=== PATIENT | female | born 1970 | race Caucasian/White ===

== ENCOUNTER 2018-11-24 13:30 | Observation (INO) | payer BC, OTHER ==
[2018-11-24] MEDS ORDERED: Ondansetron 4 MG/2 ML SDV IVPUSH ONE ×2 (13:48→16:30)
[2018-11-24] MEDS ORDERED: Sodium Chloride 0.9% 10 ML Syringe FLUSH PRN (13:48)
[2018-11-24] MEDS ORDERED: HYDROmorphone 1 MG/ML Syringe IVPUSH ONE ×2 (13:48→16:30)
[2018-11-24] MEDS ORDERED: Sodium Chloride 0.9% 1,000 ML IV ONE (13:48)
[2018-11-24] MEDS ORDERED: Sodium Chloride 0.9% 2.5 ML Syringe FLUSH PRN (13:48)
--- NOTE | 2018-11-24 13:51 | EDM.PDOC ---
ED HPI GENERAL MEDICAL PROBLEM - General Stated Complaint: SICK Time Seen by Provider: 11/24/18 13:40 - History of Present Illness INITIAL COMMENTS - FREE TEXT/NARRATIVE: HISTORY AND PHYSICAL: History of present illness: Patient's 48-year-old white female was admitted multiple prior abdominal surgeries including hysterectomy and cholecystectomy who presents with concern of nausea vomiting and abdominal pain 1 day she's had similar episodes in the past with internal hernia and associated bowel obstruction. Review of systems: As per history of present illness and below otherwise all systems reviewed and negative. Past medical history: As per history of present illness and as reviewed below otherwise noncontributory. Surgical history: As per history of present illness and as reviewed below otherwise noncontributory. Social history: No reported history of drug or alcohol abuse. Family history: As per history of present illness and as reviewed below otherwise noncontributory. Physical exam: HEENT: Atraumatic, normocephalic, pupils reactive, negative for conjunctival pallor or scleral icterus, mucous membranes dry, throat clear, neck supple, nontender, trachea midline. Lungs: Clear to auscultation, breath sounds equal bilaterally, chest nontender. Heart: S1S2, regular, negative for clicks, rubs, or JVD. Abdomen: Soft, nondistended, mild nonlocalized tenderness no rebound no guarding. Negative for masses or hepatosplenomegaly. Negative for costovertebral tenderness. Pelvis: Stable nontender. Genitourinary: Deferred. Rectal: Deferred. Extremities: Atraumatic, negative for cords or calf pain. Neurovascular unremarkable. Neuro: Awake, alert, oriented. Cranial nerves II through XII unremarkable. Cerebellum unremarkable. Motor and sensory unremarkable throughout. Exam nonfocal. Diagnostics: CBC CMP troponin PT/INR lipase chest x-ray CT abdomen and pelvis UA Therapeutics: Dilaudid 1 mg IV saline 1 L bolus Zofran 4 mg IV Impression: #1 abdominal pain #2 vomiting Definitive disposition and diagnosis as appropriate pending reevaluation and review of above. Abdomen Pain Score (Numeric/FACES): 8 - Related Data Allergies Allergy/AdvReac Type Severity Reaction Status Date / Time butorphanol tartrate AdvReac Vomiting Verified 11/24/18 13:55 [From Stadol] Home Meds: Home Meds . [No Known Home Meds] 11/24/18 [History] Past Medical History HEENT History: Reports: Allergic Rhinitis Gastrointestinal History: Reports: None Genitourinary History: Reports: None [employer] ATT[employer]NEY History: Reports: Endometriosis Musculoskeletal History: Reports: Fracture - Past Surgical History HEENT Surgical History: Reports: Oral Surgery (Upper wisdom teeth extraction) GI Surgical History: Reports: Bariatric Procedure (Gastric bypass January 2005) , Cholecystectomy (2006), Other (See Below) (Exploratory laparoscopy x 3) Female Surgical History: Reports: Section (x 2), Hysterectomy (2006) , Other (See Below) (Urethral repair) Social & Family History - Family History Family Medical History: Noncontributory - Caffeine Use Caffeine Use: Reports: Coffee - Living Situation & Occupation Living situation: Reports: , with Spouse Occupation: Employed (Paraprofessional) ED ROS GENERAL - Review of Systems Review Of Systems: ROS reveals no pertinent complaints other than HPI. ED EXAM, GENERAL - Physical Exam Exam: See Below (See dictation) Course - Vital Signs Text/Narrative:: General surgery Dr. Garcia was consulted and saw patient in emergency department and requested admission for observation NG tube was ordered per Dr. Garcia in emergency department. Pressure remains abdominal pain CT scan and report was reviewed by general surgery Last Recorded V/S: Last Vital Signs Temp 36.0 C 11/24/18 16:31 Pulse 81 11/24/18 16:31 Resp 18 11/24/18 16:31 BP 126/80 11/24/18 16:31 Pulse Ox 97 11/24/18 16:31 - Orders/Labs/Meds Orders: Active Orders 24 hr Category Date Time Status EKG Documentation Completion [RC] STAT Care 11/24/18 13:48 Active UA RFX MICHAEL AND CULT IF INDIC [URIN] Stat Lab 11/24/18 13:48 Ordered Sodium Chloride 0.9% [Saline Flush] Med 11/24/18 13:48 Active 10 ml FLUSH ASDIRECTED PRN Sodium Chloride 0.9% [Saline Flush] Med 11/24/18 13:48 Active 2.5 ml FLUSH ASDIRECTED PRN Saline Lock Insert [OM.PC] Stat Oth 11/24/18 13:48 Ordered Medication Orders Sodium Chloride (Saline Flush) 10 ml FLUSH ASDIRECTED PRN PRN Reason: Keep Vein Open Last Admin: 11/24/18 14:05 Dose: 10 ml Sodium Chloride (Saline Flush) 2.5 ml FLUSH ASDIRECTED PRN PRN Reason: Keep Vein Open Last Admin: 11/24/18 14:05 Dose: 2.5 ml Labs: Laboratory Tests 11/24/18 11/24/18 11/24/18 Range/Units 14:03 14:03 14:03 WBC 11.02 H (4.0-11.0) K/uL RBC 5.02 (4.30-5.90) M/uL Hgb 12.3 (12.0-16.0) g/dL Hct 39.9 (36.0-46.0) % MCV 79.5 L (80.0-98.0) fL MCH 24.5 L (27.0-32.0) pg MCHC 30.8 L (31.0-37.0) g/dL RDW Std Deviation 48.8 (28.0-62.0) fl RDW Coeff of Kassidy 17 H (11.0-15.0) % Plt Count 381 (150-400) K/uL MPV 10.10 (7.40-12.00) fL Neut % (Auto) 93.0 H (48.0-80.0) % Lymph % (Auto) 3.5 L (16.0-40.0) % [place] % (Auto) 3.4 (0.0-15.0) % Eos % (Auto) 0.0 (0.0-7.0) % Baso % (Auto) 0.1 (0.0-1.5) % Neut # (Auto) 10.3 H (1.4-5.7) K/uL Lymph # (Auto) 0.4 L (0.6-2.4) K/uL [place] # (Auto) 0.4 (0.0-0.8) K/uL Eos # (Auto) 0.0 (0.0-0.7) K/uL Baso # (Auto) 0.0 (0.0-0.1) K/uL Nucleated RBC % 0.0 /100WBC Nucleated RBCs # 0 K/uL INR 1.03 Sodium 140 (136-145) mmol/L Potassium 3.8 (3.5-5.1) mmol/L Chloride 102 (98-107) mmol/L Carbon Dioxide 23.6 (21.0-32.0) mmol/L BUN 9 (7.0-18.0) mg/dL Creatinine 0.7 (0.6-1.0) mg/dL Est Cr Clr Drug Dosing TNP Estimated GFR (MDRD) > 60.0 ml/min Glucose 129 H (74-106) mg/dL Calcium 9.7 (8.5-10.1) mg/dL Total Bilirubin 0.4 (0.2-1.0) mg/dL AST 26 (15-37) IU/L ALT 22 (14-63) IU/L Alkaline Phosphatase 92 (46-116) U/L Troponin I < 0.050 (0.000-0.056) ng/mL Total Protein 8.7 H (6.4-8.2) g/dL Albumin 4.0 (3.4-5.0) g/dL Globulin 4.7 H (2.6-4.0) g/dL Albumin/Globulin Ratio 0.9 (0.9-1.6) Lipase 991 H (73-393) U/L Meds: Medications Generic Name Dose Route Start Last Admin Trade Name Freq PRN Reason Stop Dose Admin Sodium Chloride 10 ml 11/24/18 13:48 11/24/18 14:05 Saline Flush FLUSH 10 ml ASDIRECTED PRN Administration Keep Vein Open Sodium Chloride 2.5 ml 11/24/18 13:48 11/24/18 14:05 Saline Flush FLUSH 2.5 ml ASDIRECTED PRN Administration Keep Vein Open Discontinued Medications Generic Name Dose Route Start Last Admin Trade Name Freq PRN Reason Stop Dose Admin Benzocaine 2 each 11/24/18 17:08 Hurricaine One 20% MUCMEM 11/24/18 17:09 ONETIME ONE Hydromorphone HCl 1 mg 11/24/18 13:48 11/24/18 14:05 Dilaudid IVPUSH 11/24/18 13:49 1 mg ONETIME ONE Administration Hydromorphone HCl 1 mg 11/24/18 16:30 11/24/18 16:37 Dilaudid IVPUSH 11/24/18 16:31 1 mg ONETIME ONE Administration Sodium Chloride 1,000 mls @ 999 mls/hr 11/24/18 13:48 11/24/18 14:03 Normal Saline IV 11/24/18 14:48 999 mls/hr STAT ONE Administration Lorazepam 0.5 mg 11/24/18 17:08 Ativan IVPUSH 11/24/18 17:09 ONETIME ONE Ondansetron HCl 4 mg 11/24/18 13:48 11/24/18 14:05 Zofran IVPUSH 11/24/18 13:49 4 mg ONETIME ONE Administration Ondansetron HCl 4 mg 11/24/18 16:30 11/24/18 16:37 Zofran IVPUSH 11/24/18 16:31 4 mg ONETIME ONE Administration Departure - Departure Time of Disposition: 17:21 Disposition: Refer to Observation Condition: Good Clinical Impression: Abdominal pain - Discharge Information Referrals: PCP,None [Primary Care Provider] - - My Orders Last 24 Hours: My Active Orders 11/24/18 13:48 EKG Documentation Completion [RC] STAT UA RFX MICHAEL AND CULT IF INDIC [URIN] Stat Sodium Chloride 0.9% [Saline Flush] 10 ml FLUSH ASDIRECTED PRN Sodium Chloride 0.9% [Saline Flush] 2.5 ml FLUSH ASDIRECTED PRN Saline Lock Insert [OM.PC] Stat - Assessment/Plan Last 24 Hours: My Active Orders 11/24/18 13:48 EKG Documentation Completion [RC] STAT UA RFX MICHAEL AND CULT IF INDIC [URIN] Stat Sodium Chloride 0.9% [Saline Flush] 10 ml FLUSH ASDIRECTED PRN Sodium Chloride 0.9% [Saline Flush] 2.5 ml FLUSH ASDIRECTED PRN Saline Lock Insert [OM.PC] Stat
--- NOTE | 2018-11-24 14:34 | CR ---
Chest: Portable view of the chest was obtained. Comparison: No prior chest imaging. Heart size and mediastinum are normal. Lungs are clear with no acute parenchymal change. Bony structures are grossly intact. Surgical clips are noted within the upper right abdomen from prior cholecystectomy. Impression: Nothing acute is seen on portable chest x-ray. Diagnostic code #2 MTDD
[2018-11-24 15:22] LABS: BLOOD UREA NITROGEN,BUN 9 mg/dL (7.0-18.0); CARBON DIOXIDE,CO2 23.6 mmol/L (21.0-32.0); CHLORIDE,CL 102 mmol/L (98-107); GLUCOSE RANDOM 129 mg/dL (74-106); LIPASE 991 U/L (73-393); POTASSIUM,K 3.8 mmol/L (3.5-5.1); SODIUM,NA 140 mmol/L (136-145)
--- NOTE | 2018-11-24 16:07 | CT ---
CT abdomen and pelvis Technique: Multiple axial sections were obtained from above the dome of the diaphragm inferiorly through the pubic symphysis. Intravenous and oral contrast not utilized. Comparison: No prior abdominal imaging is available. Findings: Visualized lung bases show nothing acute. Fluid-filled and dilated stomach is noted. Previous gastric surgery is seen. There is also mildly dilated fluid-filled duodenum as well as several dilated and fluid-filled jejunal loops down to an area of surgical clips within the proximal jejunum. Slightly past the area of dilatation there is whirling of the adjacent mesenteric vessels which suggest possibility of volvulus of the central mesentery. More distal bowel show normal caliber. Appendix is not visualized with certainty. No free fluid or inflammatory change is seen. Liver shows no focal abnormality. Spleen appears within normal limits. Pancreas shows no discrete abnormality. CBD is mildly dilated at 1.1 cm which is most likely due to previous cholecystectomy. Aorta shows no aneurysm. No retroperitoneal adenopathy is seen. Bone window settings were reviewed which appear within normal limits for the patient's age. Impression: 1. Fluid-filled and dilated stomach as well as duodenum and proximal jejunum. This dilatation stops is an area of surgical anastomotic sutures within the jejunum. At this level there is whirling of the mesentery suggesting the possibility of a volvulus. 2. CBD mildly dilated most likely residual from prior cholecystectomy. 3. No additional abnormality is appreciated. Diagnostic code #5 MTDD
[2018-11-24] MEDS ORDERED: LORazepam 2 MG/ML SDV IVPUSH ONE (17:08)
[2018-11-24] MEDS ORDERED: Benzocaine 20% Topical Spray UD MUCMEM ONE (17:08)
[2018-11-24] MEDS ORDERED: Ondansetron 4 MG/2 ML SDV IVPUSH PRN (17:41)
[2018-11-24] MEDS: Morphine 2 MG/ML Syringe IVPUSH PRN (18:24)
[2018-11-24] MEDS: Lactated Ringers 1,000 ML IV SCH (18:25)
--- NOTE | 2018-11-24 18:27 | CR ---
INDICATION: NG tube placement. TECHNIQUE: Supine portable abdomen. 2 images 1743 and 1755 hours IMPRESSION : NG tube with its tip projected at the level of the stomach. The bowel gas pattern is nonobstructive. Two view submitted. Initial image NG tube is in the distal esophagus and it was then advanced to the level of the stomach. This was at 1755 hours. Surgical clips in the right upper quadrant. Dictated by Shantanu Harrell MD @ Nov 24 2018 6:24PM Signed by Dr. Shantanu Harrell @ Nov 24 2018 6:26PM
[2018-11-24] MEDS ORDERED: Promethazine 12.5 MG Supp RECTAL ONE (18:33)
--- NOTE | 2018-11-24 19:16 | CONS ---
DATE OF CONSULTATION: DATE OF : 1970 PRIMARY CARE PHYSICIAN: None PCP REASON FOR CONSULTATION: This is a consult from Dr. Boone in emergency room. Concerning question is abdominal pain. HISTORY OF PRESENT ILLNESS: The patient is a 48-year-old lady who has multiple abdominal surgeries, complained over several months on and off stomach problem. The patient remarked the situation got worse and pain increased to 10/10 yesterday and also nausea and vomiting. The patient sought help in the emergency room. Currently, the patient remarked that her pain is slightly better and is 7 on a pain scale and last bowel movement was a couple of hours prior to coming to the emergency room. ALLERGIES: Please refer to nursing for details. MEDICATION: Please refer to nursing for details. FAMILY HISTORY: Noncontributory. PAST MEDICAL HISTORY: Denied diabetes, NE, CVA, hypertension. PAST SURGICAL HISTORY: Gallbladder surgery, hysterectomy, and 2 explorations that resulted in bowel resection due to recurrent bowel obstruction. x2 in the past. SOCIAL HISTORY: Denied tobacco or alcohol abuse. REVIEW OF SYSTEMS: Same as history of present illness. PHYSICAL EXAMINATION: GENERAL: A very pleasant lady, smiled to the doctor, in no acute distress. HEENT: Normocephalic and atraumatic. Sclerae anicteric. LUNGS: Clear to auscultation. HEART: Regular rate and rhythm. ABDOMEN: Soft, nondistended. Mild subjective tenderness. No rebound tenderness. Diminished bowel sounds. There is no freight train gushing bowel sounds or high-pitched bowel sounds. VITAL SIGNS: Temperature 96.8, pulse rate is 81, pressure is 136/80, respiratory rate is 18, and on room air saturating at 97. LABORATORY DATA: White count is 11, H and H are 12 and 40, platelets are 380. INR is 1.02. Sodium was 140, potassium is 3.8, BUN is 9, creatinine is 0.7, glucose is 129. TBili is 0.4, AST and ALT of 26 and 22, alkaline phosphatase is 92. Troponin I is 0.05, negative. Albumin is 4. Lipase is 991. CAT scan reading: Fluid- filled and dilated stomach as well as duodenum and proximal jejunum. Dilatation stops in an area of surgical anastomotic sutures within the jejunum. There is swirling of the mesentery suggesting possibility of volvulus. IMPRESSION: CAT scan concern about recurrent internal hernia or internal volvulus and clinically the patient looks like as having a wax and wane situation, been going on for several months. We would put an NG tube, conservative management, decompression, and follow with serial abdominal exam or maybe imaging system. Plan has been discussed with the patient, proceed as planned, and at the same time try to obtain previous operational records from [facility]. Last surgery was done 11 years ago at [facility]. As always, thank you for the kind referral. PAUL LYN /[id number] FREDERIC
[2018-11-24] MEDS: Levofloxacin/Dextrose 5%-Water 750 MG in Premix Bag 1 BAG IV SCH (20:08)
[2018-11-25] MEDS: Lactated Ringers 1,000 ML IV SCH ×3 (02:30→16:30)
[2018-11-25 05:42] LABS: BLOOD UREA NITROGEN,BUN 12 mg/dL (7.0-18.0); CARBON DIOXIDE,CO2 27.3 mmol/L (21.0-32.0); CHLORIDE,CL 108 mmol/L (98-107); GLUCOSE RANDOM 99 mg/dL (74-106); LIPASE 375 U/L (73-393); POTASSIUM,K 3.4 mmol/L (3.5-5.1); SODIUM,NA 143 mmol/L (136-145)
[2018-11-25] MEDS: Pantoprazole 40 MG in Sodium Chloride 0.9% 10 ML IV SCH (08:15)
[2018-11-25] MEDS: Levofloxacin/Dextrose 5%-Water 750 MG in Premix Bag 1 BAG IV SCH (19:55)
[2018-11-25] MEDS: Morphine 2 MG/ML Syringe IVPUSH PRN (19:56)
[2018-11-26] MEDS: Lactated Ringers 1,000 ML IV SCH ×2 (00:02→06:45)
[2018-11-26 09:01] VITALS: BP 106/62; PULSE 65
[2018-11-26] MEDS: Pantoprazole 40 MG in Sodium Chloride 0.9% 10 ML IV SCH (10:02)
--- NOTE | 2018-11-26 10:29 | PCM.SURGPN ---
- General Info Date of Service: 11/25/18 Functional Status: Reports: Pain Controlled (pain almost all gone) - Patient Data Vitals - Most Recent: Last Vital Signs Temp 97.9 F 11/26/18 08:00 Pulse 65 11/26/18 08:00 Resp 16 11/26/18 08:00 BP 106/62 11/26/18 08:00 Pulse Ox 96 11/26/18 08:00 Weight - Most Recent: 191 lb 6 oz I&O - Last 24 Hours: Intake & Output 11/25/18 11/26/18 11/26/18 22:59 06:59 14:59 Intake Total 1000 2180 Output Total 620 Balance 1000 1560 Med Orders - Current: Current Medications Lactated Ringer's (Ringers, Lactated) 1,000 mls @ 150 mls/hr IV ASDIRECTED [facility] Last Admin: 11/26/18 06:45 Dose: 150 mls/hr Pantoprazole Sodium 40 mg/ (Sodium Chloride) 10 mls @ 300 mls/hr IV DAILY [facility] Last Admin: 11/26/18 10:02 Dose: 300 mls/hr Levofloxacin/Dextrose 750 mg/ (Premix) 150 mls @ 100 mls/hr IV Q24H [facility] Last Admin: 11/25/18 19:55 Dose: 100 mls/hr Morphine Sulfate (Morphine) 2 mg IVPUSH Q4H PRN PRN Reason: Pain Last Admin: 11/25/18 19:56 Dose: 2 mg Ondansetron HCl (Zofran) 4 mg IVPUSH Q8H PRN PRN Reason: Nausea/Vomiting Last Admin: 11/24/18 20:08 Dose: 4 mg Sodium Chloride (Saline Flush) 10 ml FLUSH ASDIRECTED PRN PRN Reason: Keep Vein Open Last Admin: 11/24/18 14:05 Dose: 10 ml Sodium Chloride (Saline Flush) 2.5 ml FLUSH ASDIRECTED PRN PRN Reason: Keep Vein Open Last Admin: 11/24/18 14:05 Dose: 2.5 ml Discontinued Medications Benzocaine (Hurricaine One 20%) 2 each MUCMEM ONETIME ONE Stop: 11/24/18 17:09 Last Admin: 11/24/18 17:20 Dose: 2 each Hydromorphone HCl (Dilaudid) 1 mg IVPUSH ONETIME ONE Stop: 11/24/18 13:49 Last Admin: 11/24/18 14:05 Dose: 1 mg Hydromorphone HCl (Dilaudid) 1 mg IVPUSH ONETIME ONE Stop: 11/24/18 16:31 Last Admin: 11/24/18 16:37 Dose: 1 mg Sodium Chloride (Normal Saline) 1,000 mls @ 999 mls/hr IV STAT ONE Stop: 11/24/18 14:48 Last Admin: 11/24/18 14:03 Dose: 999 mls/hr Lorazepam (Ativan) 0.5 mg IVPUSH ONETIME ONE Stop: 11/24/18 17:09 Last Admin: 11/24/18 17:19 Dose: 0.5 mg Ondansetron HCl (Zofran) 4 mg IVPUSH ONETIME ONE Stop: 11/24/18 13:49 Last Admin: 11/24/18 14:05 Dose: 4 mg Ondansetron HCl (Zofran) 4 mg IVPUSH ONETIME ONE Stop: 11/24/18 16:31 Last Admin: 11/24/18 16:37 Dose: 4 mg Promethazine HCl (Phenadoz) 25 mg RECTAL ONETIME ONE Stop: 11/24/18 18:34 Last Admin: 11/24/18 18:43 Dose: 25 mg - Exam GI/Abdominal Exam: Soft, Non-Tender, No Distention - Problem List Review Problem List Initiated/Reviewed/Updated: Yes - My Orders Last 24 Hours: Active Orders 24 hr Category Date Time Status Full Liquid Diet [DIET] Diet 11/26/18 Breakfast Active Medication Orders Lactated Ringer's (Ringers, Lactated) 1,000 mls @ 150 mls/hr IV ASDIRECTED [facility] Last Admin: 11/26/18 06:45 Dose: 150 mls/hr Infusion: 11/26/18 06:43 Dose: 150 mls/hr Admin: 11/26/18 00:02 Dose: 150 mls/hr Infusion: 11/25/18 23:11 Dose: 150 mls/hr Admin: 11/25/18 16:30 Dose: 150 mls/hr Infusion: 11/25/18 16:30 Dose: 150 mls/hr Admin: 11/25/18 09:33 Dose: 150 mls/hr Infusion: 11/25/18 09:11 Dose: 150 mls/hr Admin: 11/25/18 02:30 Dose: 150 mls/hr Infusion: 11/25/18 01:06 Dose: 150 mls/hr Admin: 11/24/18 18:25 Dose: 150 mls/hr Pantoprazole Sodium 40 mg/ (Sodium Chloride) 10 mls @ 300 mls/hr IV DAILY [facility] Last Admin: 11/26/18 10:02 Dose: 300 mls/hr Infusion: 11/25/18 08:17 Dose: 300 mls/hr Admin: 11/25/18 08:15 Dose: 300 mls/hr Levofloxacin/Dextrose 750 mg/ (Premix) 150 mls @ 100 mls/hr IV Q24H [facility] Last Admin: 11/25/18 19:55 Dose: 100 mls/hr Infusion: 11/24/18 21:38 Dose: 100 mls/hr Admin: 11/24/18 20:08 Dose: 100 mls/hr Morphine Sulfate (Morphine) 2 mg IVPUSH Q4H PRN PRN Reason: Pain Last Admin: 11/25/18 19:56 Dose: 2 mg Admin: 11/24/18 18:24 Dose: 2 mg Ondansetron HCl (Zofran) 4 mg IVPUSH Q8H PRN PRN Reason: Nausea/Vomiting Last Admin: 11/24/18 20:08 Dose: 4 mg Sodium Chloride (Saline Flush) 10 ml FLUSH ASDIRECTED PRN PRN Reason: Keep Vein Open Last Admin: 11/24/18 14:05 Dose: 10 ml Sodium Chloride (Saline Flush) 2.5 ml FLUSH ASDIRECTED PRN PRN Reason: Keep Vein Open Last Admin: 11/24/18 14:05 Dose: 2.5 ml - Assessment Assessment (Free Text/Narrative):: ngt clamp trial, if mikie, po diet, home in morning - Plan Plan (Free Text/Narrative):: ngt clamp trial, if mkiie, po diet, home in morning
--- NOTE | 2018-11-26 10:35 | PCM.DCSUM1 ---
Discharge Summary - Hospital Course Free Text/Narrative:: admitted for n/v X months, but getting worse on date of admission Diagnosis: Stroke: No - Discharge Data Discharge Date: 11/26/18 Discharge Disposition: Home, Self-Care 01 Condition: Fair - Referral to Home Health Date of Face to Face Encounter: 11/26/18 Primary Care Physician: PCP None - Patient Summary/Data Hospital Course: pls refer to admission h/p for details; in summary pt admitted via ed for several days of n/v; ct revealed possible pSBO; pt was admitted for ngt decompression; pt got relieved right away after ngt insertion; the next day; pt pain completely resolved; and passed ngt clamp trial; put on po diet; tolerated well, and dc home, fu 1 - 2 wks - Patient Instructions Diet: Heart Healthy Diet Activity: As Tolerated Showering/Bathing: May Shower Notify Provider of: Fever, Nausea and/or Vomiting - Discharge Plan Home Medications: Home Meds . [No Known Home Meds] 11/24/18 [History] Referrals: Asim Hutchison MD [Physician] - 12/08/18 9:15 am (1-2 weeks) - Discharge Summary/Plan Comment DC Time >30 min.: Yes - Patient Data Vitals - Most Recent: Last Vital Signs Temp 97.9 F 11/26/18 08:00 Pulse 65 11/26/18 08:00 Resp 16 11/26/18 08:00 BP 106/62 11/26/18 08:00 Pulse Ox 96 11/26/18 08:00 Weight - Most Recent: 191 lb 6 oz I&O - Last 24 hours: Intake & Output 11/25/18 11/26/18 11/26/18 22:59 06:59 14:59 Intake Total 1000 2180 Output Total 620 Balance 1000 1560 Med Orders - Current: Current Medications Lactated Ringer's (Ringers, Lactated) 1,000 mls @ 150 mls/hr IV ASDIRECTED [facility] Last Admin: 11/26/18 06:45 Dose: 150 mls/hr Pantoprazole Sodium 40 mg/ (Sodium Chloride) 10 mls @ 300 mls/hr IV DAILY [facility] Last Admin: 11/26/18 10:02 Dose: 300 mls/hr Levofloxacin/Dextrose 750 mg/ (Premix) 150 mls @ 100 mls/hr IV Q24H [facility] Last Admin: 11/25/18 19:55 Dose: 100 mls/hr Morphine Sulfate (Morphine) 2 mg IVPUSH Q4H PRN PRN Reason: Pain Last Admin: 11/25/18 19:56 Dose: 2 mg Ondansetron HCl (Zofran) 4 mg IVPUSH Q8H PRN PRN Reason: Nausea/Vomiting Last Admin: 11/24/18 20:08 Dose: 4 mg Sodium Chloride (Saline Flush) 10 ml FLUSH ASDIRECTED PRN PRN Reason: Keep Vein Open Last Admin: 11/24/18 14:05 Dose: 10 ml Sodium Chloride (Saline Flush) 2.5 ml FLUSH ASDIRECTED PRN PRN Reason: Keep Vein Open Last Admin: 11/24/18 14:05 Dose: 2.5 ml Discontinued Medications Benzocaine (Hurricaine One 20%) 2 each MUCMEM ONETIME ONE Stop: 11/24/18 17:09 Last Admin: 11/24/18 17:20 Dose: 2 each Hydromorphone HCl (Dilaudid) 1 mg IVPUSH ONETIME ONE Stop: 11/24/18 13:49 Last Admin: 11/24/18 14:05 Dose: 1 mg Hydromorphone HCl (Dilaudid) 1 mg IVPUSH ONETIME ONE Stop: 11/24/18 16:31 Last Admin: 11/24/18 16:37 Dose: 1 mg Sodium Chloride (Normal Saline) 1,000 mls @ 999 mls/hr IV STAT ONE Stop: 11/24/18 14:48 Last Admin: 11/24/18 14:03 Dose: 999 mls/hr Lorazepam (Ativan) 0.5 mg IVPUSH ONETIME ONE Stop: 11/24/18 17:09 Last Admin: 11/24/18 17:19 Dose: 0.5 mg Ondansetron HCl (Zofran) 4 mg IVPUSH ONETIME ONE Stop: 11/24/18 13:49 Last Admin: 11/24/18 14:05 Dose: 4 mg Ondansetron HCl (Zofran) 4 mg IVPUSH ONETIME ONE Stop: 11/24/18 16:31 Last Admin: 11/24/18 16:37 Dose: 4 mg Promethazine HCl (Phenadoz) 25 mg RECTAL ONETIME ONE Stop: 11/24/18 18:34 Last Admin: 11/24/18 18:43 Dose: 25 mg
== END 2018-11-26 11:50 | disposition home or self-care (01) ==
LOC: MW.ED 13:30 → MW.MS 17:52
PROVIDERS: ADMIT Surgery; ATTEND Surgery
DX: R11.2 Nausea with vomiting, unspecified (principal); R10.9 Unspecified abdominal pain; Z88.5 Allergy status to narcotic agent
CPT/HCPCS: 36415; 71045; 71045-26; 74018; 74018-26; 74176; 74176-26; 80053; 81001; 82150; 83605; 83690; 84484; 85025; 85610; 93005; 96361; 96365; 96366; 96374; 96375; 96376; 99284; 99285-25; A9270-GY; C9113; G0378; J1170; J1956; J2060; J2270; J2405; J7040; J7050; J7120